=== PATIENT | female | born 1980 | race American Indian/Alaskan Native ===

== ENCOUNTER 2020-04-02 11:12 | Inpatient (IN) | payer BC, MEDICAID ==
[~2020-04-02] VITALS: Ht 154.9 cm; Wt 72.0 kg
[2020-04-02 11:55] LABS: BASOPHILS # (AUTO) 0.1 X10'3 (0-0.2); EOSINOPHILS % (AUTO) 0.2 % (0-6); HEMATOCRIT 34.5 % (35.0-45.0); HEMOGLOBIN 11.8 g/dl (12.0-16.0); LYMPHOCYTES # (AUTO) 1.2 X10'3 (1.1-4.8); LYMPHOCYTES % (AUTO) 12.2 % (21-51); MEAN CORPUSCULAR HEMOGLOBIN 41.4 PG (27.0-31.0); MEAN CORPUSCULAR HGB CONC 34.3 g/dL (33.0-36.5); MEAN CORPUSCULAR VOLUME 120.5 FL (78-98); MEAN PLATELET VOLUME 8.5 FL (7.4-10.4); MONOCYTES # (AUTO) 1.3 X10'3 (0-0.9); NEUTROPHILS # (AUTO) 7.1 X10'3 (1.8-7.7); NEUTROPHILS % (AUTO) 73.6 % (42-75); PLATELET COUNT 241 X10'3 (140-440); RED BLOOD COUNT 2.86 X10'6 (4.20-5.60); RED CELL DISTRIBUTION WIDTH 17.4 % (11.5-14.5); WHITE BLOOD COUNT 9.6 X10'3 (4.5-11.0)
[2020-04-02 12:09] LABS: ALANINE AMINOTRANSFERASE 96 U/L (12-78); ALBUMIN 2.1 G/DL (3.4-5.0); ALKALINE PHOSPHATASE 279 IU/L (46-116); AMYLASE 58 U/L (25-115); ANION GAP 12 (8-16); ASPARTATE AMINO TRANSFERASE 388 U/L (10-37); BILIRUBIN,TOTAL 11.7 MG/DL (0.1-1.0); BLOOD UREA NITROGEN 5 MG/DL (7-18); BUN/CREATININE RATIO 7.9 (6.6-38.0); CALCIUM 8.2 MG/DL (8.5-10.1); CHLORIDE 95 MMOL/L (99-107); CREATININE 0.63 MG/DL (0.40-0.90); GLUCOSE 130 MG/DL (70-104); LIPASE 314 U/L (73-393); SODIUM 129 MMOL/L (135-145); TOTAL CARBON DIOXIDE 22.5 MMOL/L (24-32); eGFR > 90 ML/MIN
[2020-04-02 12:11] LABS: ALBUMIN/GLOBULIN RATIO 0.4 (1.1-1.5); POTASSIUM 3.2 MMOL/L (3.5-5.1); TOTAL PROTEIN 7.3 G/DL (6.4-8.2)
[2020-04-02 12:12] LABS: PLATELET ESTIMATE NORMAL
[2020-04-02 12:14] LABS: ANISOCYTOSIS 1+
[2020-04-02 12:16] LABS: POLYCHROMASIA FEW; TARGET CELLS 1+
[2020-04-02 12:17] LABS: HCG SERUM QL NEGATIVE; HYPOCHROMASIA 1+
[2020-04-02] MEDS ORDERED: ondansetron/PF 4mg/2ml inj IV ONE ×2 (13:10→15:45)
[2020-04-02] MEDS ORDERED: normal saline 1000ML IV soln IVB ONE ×2 (13:10→15:35)
[2020-04-02 14:04] LABS: CLARITY,URINE Cloudy (Clear); COLOR,URINE BROWN (Yellow); UA COLLECTION TYPE CLN CATCH MIDSTREAM
--- NOTE | 2020-04-02 14:05 | NUR ---
To CT scan.
[2020-04-02 14:06] LABS: URINE HCG NEGATIVE (NEG)
[2020-04-02 14:15] LABS: BACTERIA,URINE 4+ /HPF (Neg); SQUAMOUS EPITHELIAL CELL,UR MANY /LPF (FEW)
[2020-04-02 14:16] LABS: WBC,URINE 30-50 /HPF (0-4)
[2020-04-02 14:18] LABS: WBC CLUMPS,URINE FEW /HPF (NEGATIVE)
[2020-04-02 14:19] LABS: TRANSITIONAL EPI CELLS,URINE FEW /HPF
--- NOTE | 2020-04-02 14:25 | NUR ---
Returned from CT scan via w/c. IVF bolus resumed at this time. Pt continues to have sinus tachy on the tele monitor. Pt's eyes and skin noted to be jaundiced.
[2020-04-02 14:34] LABS: PARTIAL THROMBOPLASTIN TIME 27 SECONDS (22-32)
[2020-04-02] MEDS ORDERED: morphine 10mg/ml inj. IV ONE (15:45)
[2020-04-02] MEDS ORDERED: piperacillin/tazo 3.375gm/50ml 50 ML IV ONE (15:45)
[2020-04-02] MEDS ORDERED: NO HOME MEDS (16:11)
[2020-04-02] MEDS ORDERED: magnesium 4gm in 100ml NS 100 ML IV PRN (16:25)
[2020-04-02] MEDS ORDERED: potassium CL 10mEq/100ml bag 100 ML IV PRN ×2 (16:25)
[2020-04-02] MEDS ORDERED: magnesium Cl slow-release 64mg tablet PO PRN (16:25)
[2020-04-02] MEDS ORDERED: potassium Cl 20 mEq SR tablet PO PRN (16:25)
[2020-04-02] MEDS ORDERED: ondansetron/PF 4mg/2ml inj IV PRN (16:25)
[2020-04-02] MEDS ORDERED: haloperidol 5mg tablet PO PRN (16:50)
[2020-04-02] MEDS ORDERED: LORazepam 2 mg/ml vial IV PRN (16:50)
[2020-04-02] MEDS ORDERED: haloperidol lactate 5mg/ml inj IM PRN (16:50)
[2020-04-02] MEDS ORDERED: dextrose 50%-water 50ml dispensing syringe IV PRN (16:50)
[2020-04-02] MEDS ORDERED: thiamine 100mg/ml 2ml inj. IV ONE (16:50)
--- NOTE | 2020-04-02 19:13 | NUR ---
Attempted to phone report, receiving RN is not ready to receive report.
--- NOTE | 2020-04-02 19:28 | NUR ---
PAGER ID: [phone] MESSAGE: FAHADBEENA [phone] RE: VELEBIT VBED 10 DOES SHE NEED FLUIDS? ONCOMING RN ASKING, NPO
--- NOTE | 2020-04-02 19:30 | NUR ---
I have received report from Jessy MÁRQUEZ and had the opportunity to ask questions and assume patient care. Pt showing no signs of distress
[2020-04-02 20:00] VITALS: BP 116/73
[2020-04-02] MEDS: K and/or MAG REPLACEMENT MC SCH (20:00)
[2020-04-02] MEDS: potassium Cl 20 mEq SR tablet PO PRN (21:22)
[2020-04-02] MEDS: LORazepam 1 MG tablet PO PRN (21:23)
[2020-04-02] MEDS: normal saline 1000ml 1,000 ML IV SCH (23:57)
[2020-04-03] VITALS: BP 121/76
[2020-04-03] MEDS: potassium Cl 20 mEq SR tablet PO PRN (02:34)
[2020-04-03 06:15] LABS: ALANINE AMINOTRANSFERASE 73 U/L (12-78); ALBUMIN 1.8 G/DL (3.4-5.0); ALKALINE PHOSPHATASE 229 IU/L (46-116); ANION GAP 10 (8-16); ASPARTATE AMINO TRANSFERASE 336 U/L (10-37); BILIRUBIN,TOTAL 14.1 MG/DL (0.1-1.0); BLOOD UREA NITROGEN 4 MG/DL (7-18); BUN/CREATININE RATIO 8.5 (6.6-38.0); CALCIUM 7.8 MG/DL (8.5-10.1); CHLORIDE 105 MMOL/L (99-107); CREATININE 0.47 MG/DL (0.40-0.90); GLUCOSE 64 MG/DL (70-104); MAGNESIUM 1.4 MG/DL (1.5-2.4); SODIUM 138 MMOL/L (135-145); TOTAL CARBON DIOXIDE 23.5 MMOL/L (24-32); eGFR > 90 ML/MIN
[2020-04-03 06:16] LABS: BASOPHILS # (AUTO) 0.1 X10'3 (0-0.2); BASOPHILS % (AUTO) 0.7 % (0-1); EOSINOPHILS # (AUTO) 0.1 X10'3 (0-0.9); EOSINOPHILS % (AUTO) 1.2 % (0-6); HEMATOCRIT 29.8 % (35.0-45.0); HEMOGLOBIN 10.3 g/dl (12.0-16.0); LYMPHOCYTES # (AUTO) 1.4 X10'3 (1.1-4.8); LYMPHOCYTES % (AUTO) 14.3 % (21-51); MEAN CORPUSCULAR HEMOGLOBIN 42.7 PG (27.0-31.0); MEAN CORPUSCULAR HGB CONC 34.5 g/dL (33.0-36.5); MEAN CORPUSCULAR VOLUME 123.7 FL (78-98); MEAN PLATELET VOLUME 9.3 FL (7.4-10.4); MONOCYTES # (AUTO) 1.2 X10'3 (0-0.9); MONOCYTES % (AUTO) 12.4 % (2-12); NEUTROPHILS # (AUTO) 6.9 X10'3 (1.8-7.7); NEUTROPHILS % (AUTO) 71.4 % (42-75); PLATELET COUNT 194 X10'3 (140-440); RED BLOOD COUNT 2.41 X10'6 (4.20-5.60); RED CELL DISTRIBUTION WIDTH 16.6 % (11.5-14.5); WHITE BLOOD COUNT 9.6 X10'3 (4.5-11.0)
[2020-04-03 06:17] LABS: ALBUMIN/GLOBULIN RATIO 0.4 (1.1-1.5); POTASSIUM 3.7 MMOL/L (3.5-5.1); TOTAL PROTEIN 6.4 G/DL (6.4-8.2)
--- NOTE | 2020-04-03 06:27 | NUR ---
Problems reprioritized. Patient report given, questions answered & plan of care reviewed with Adrienne MÁRQUEZ.
[2020-04-03 07:19] VITALS: BP 111/73
[2020-04-03] MEDS: K and/or MAG REPLACEMENT MC SCH ×2 (08:00→20:00)
[2020-04-03 08:21] LABS: ANISOCYTOSIS 1+; PLATELET ESTIMATE NORMAL; STOMATOCYTES 2+
[2020-04-03 08:22] LABS: HYPOCHROMASIA 1+; TARGET CELLS FEW
[2020-04-03] MEDS: normal saline 1000ml 1,000 ML IV SCH ×2 (09:50→12:59)
--- NOTE | 2020-04-03 11:55 | NUR ---
COVERING LUNCH RELIEF FOR Debbie ROBB RN. PT DENIES ANY UNMET NEEDS AT THIS TIME Addendum: 04/03/20 at 1156 by Judy Rosario RN Flores [facility] YULISA
[2020-04-03 11:56] VITALS: BP 112/67
[2020-04-03] MEDS: magnesium 2GM in 50ml NS 50 ML IV PRN ×2 (12:58→15:32)
[2020-04-03 18:00] VITALS: BP 116/78
--- NOTE | 2020-04-03 18:30 | NUR ---
Patient in room [facility]. I have received report from YULISA Deleon and had the opportunity to ask questions and assume patient care. discussed plan of care. pt verbalizes understanding. No other complaints. Addendum: 04/03/20 at 1903 by Amebr Villar RN Amended: Links added.
--- NOTE | 2020-04-03 18:44 | NUR ---
Problems reprioritized. Patient report given, questions answered & plan of care reviewed with YULISA Nye.
[2020-04-03] MEDS: LORazepam 1 MG tablet PO PRN (20:46)
--- NOTE | 2020-04-03 20:58 | NUR ---
ATIVAN GIVEN FOR ANXIETY SL SHAKING. ALERT AND ORIENTED. Addendum: 04/03/20 at 2058 by Amber Villar RN Amended: Links added.
[2020-04-03 23:30] VITALS: BP 120/81
[2020-04-04] MEDS: normal saline 1000ml 1,000 ML IV SCH ×3 (03:30→12:24)
[2020-04-04 06:01] LABS: BASOPHILS # (AUTO) 0.2 X10'3 (0-0.2); BASOPHILS % (AUTO) 1.7 % (0-1); EOSINOPHILS # (AUTO) 0.1 X10'3 (0-0.9); EOSINOPHILS % (AUTO) 1.4 % (0-6); HEMATOCRIT 31.4 % (35.0-45.0); HEMOGLOBIN 10.6 g/dl (12.0-16.0); LYMPHOCYTES # (AUTO) 1.6 X10'3 (1.1-4.8); MEAN CORPUSCULAR HEMOGLOBIN 41.9 PG (27.0-31.0); MEAN CORPUSCULAR HGB CONC 33.9 g/dL (33.0-36.5); MEAN CORPUSCULAR VOLUME 123.5 FL (78-98); MEAN PLATELET VOLUME 8.9 FL (7.4-10.4); MONOCYTES # (AUTO) 1.1 X10'3 (0-0.9); MONOCYTES % (AUTO) 11.6 % (2-12); NEUTROPHILS # (AUTO) 6.5 X10'3 (1.8-7.7); NEUTROPHILS % (AUTO) 68.3 % (42-75); PLATELET COUNT 215 X10'3 (140-440); RED BLOOD COUNT 2.54 X10'6 (4.20-5.60); WHITE BLOOD COUNT 9.5 X10'3 (4.5-11.0)
[2020-04-04 06:19] LABS: ALANINE AMINOTRANSFERASE 75 U/L (12-78); ALBUMIN 1.8 G/DL (3.4-5.0); ALKALINE PHOSPHATASE 222 IU/L (46-116); ANION GAP 10 (8-16); BLOOD UREA NITROGEN 3 MG/DL (7-18); CALCIUM 7.7 MG/DL (8.5-10.1); CHLORIDE 104 MMOL/L (99-107); MAGNESIUM 2.2 MG/DL (1.5-2.4); SODIUM 136 MMOL/L (135-145); TOTAL CARBON DIOXIDE 22.4 MMOL/L (24-32)
[2020-04-04 06:26] LABS: ALBUMIN/GLOBULIN RATIO 0.4 (1.1-1.5); ASPARTATE AMINO TRANSFERASE 325 U/L (10-37); BUN/CREATININE RATIO 6.7 (6.6-38.0); CREATININE 0.45 MG/DL (0.40-0.90); GLUCOSE 53 MG/DL (70-104); POTASSIUM 3.9 MMOL/L (3.5-5.1); TOTAL PROTEIN 6.6 G/DL (6.4-8.2); eGFR > 90 ML/MIN
--- NOTE | 2020-04-04 06:35 | NUR ---
Problems reprioritized. Patient report given, questions answered & plan of care reviewed with YULISA Varela. Addendum: 04/04/20 at 0654 by Amber Villar RN Amended: Links added.
--- NOTE | 2020-04-04 06:48 | NUR ---
Patient in room [facility]. I have received report from Parris MÁRQUEZ and had the opportunity to ask questions and assume patient care.
[2020-04-04 07:00] VITALS: BP 117/82
[2020-04-04 07:15] LABS: ANISOCYTOSIS 1+; PLATELET ESTIMATE NORMAL; POLYCHROMASIA 2+; TARGET CELLS FEW
[2020-04-04] MEDS: K and/or MAG REPLACEMENT MC SCH ×2 (08:00→19:00)
--- NOTE | 2020-04-04 08:05 | NUR ---
Blood sugar this am was 58mg/dl, patient currently on NPO. D50 slowp IV push given as indicated for hypogylcemia
--- NOTE | 2020-04-04 10:29 | NUR ---
Patient very anxious at this time because she is going to MRI dept. Ativan 2mg IV given
[2020-04-04 11:00] VITALS: BP 100/63
--- NOTE | 2020-04-04 12:26 | NUR ---
Dr. Hansen notified about the hypoglycemia this am and that I gave patient D50. Dr. Hansen said patient supposed to be seen by Dr. Reynolds and that we need to keep patient NPO
--- NOTE | 2020-04-04 14:19 | NUR ---
Paged Dr. Hansen PAGER ID: [phone] MESSAGE: Blayne Varela RN ext [phone]. RE: Graciela Staples. Blood sugar dropped again 73 mg/dl at this time. She is getting NS@100ml/hr. Can we change her IVF to a D5?
[2020-04-04] MEDS: dextrose 5%-normal saline 1,000 ML IV SCH (14:43)
[2020-04-04 18:15] VITALS: BP 121/87
--- NOTE | 2020-04-04 18:49 | NUR ---
Problems reprioritized. Patient report given, questions answered & plan of care reviewed with Leona MÁRQUEZ.
--- NOTE | 2020-04-04 18:57 | NUR ---
Patient in room [facility]. I have received report from YULISA Varela and had the opportunity to ask questions and assume patient care.
[2020-04-05 00:15] VITALS: BP 131/83
[2020-04-05] MEDS: dextrose 5%-normal saline 1,000 ML IV SCH ×2 (00:30→10:05)
[2020-04-05 05:29] LABS: ALANINE AMINOTRANSFERASE 63 U/L (12-78); ALBUMIN 1.6 G/DL (3.4-5.0); ALKALINE PHOSPHATASE 189 IU/L (46-116); ANION GAP 8 (8-16); ASPARTATE AMINO TRANSFERASE 233 U/L (10-37); BILIRUBIN,TOTAL 10.9 MG/DL (0.1-1.0); BLOOD UREA NITROGEN 3 MG/DL (7-18); BUN/CREATININE RATIO 4.5 (6.6-38.0); CALCIUM 7.6 MG/DL (8.5-10.1); CHLORIDE 104 MMOL/L (99-107); CREATININE 0.66 MG/DL (0.40-0.90); GLUCOSE 103 MG/DL (70-104); MAGNESIUM 1.9 MG/DL (1.5-2.4); SODIUM 134 MMOL/L (135-145); TOTAL CARBON DIOXIDE 22.2 MMOL/L (24-32); eGFR > 90 ML/MIN
[2020-04-05 05:33] LABS: ALBUMIN/GLOBULIN RATIO 0.4 (1.1-1.5); POTASSIUM 3.2 MMOL/L (3.5-5.1); TOTAL PROTEIN 5.9 G/DL (6.4-8.2)
[2020-04-05 06:27] LABS: BASOPHILS # (AUTO) 0.1 X10'3 (0-0.2); BASOPHILS % (AUTO) 1.5 % (0-1); EOSINOPHILS # (AUTO) 0.1 X10'3 (0-0.9); EOSINOPHILS % (AUTO) 1.5 % (0-6); HEMATOCRIT 27.9 % (35.0-45.0); HEMOGLOBIN 9.8 g/dl (12.0-16.0); LYMPHOCYTES # (AUTO) 1.7 X10'3 (1.1-4.8); LYMPHOCYTES % (AUTO) 18.6 % (21-51); MEAN CORPUSCULAR HEMOGLOBIN 43.3 PG (27.0-31.0); MEAN CORPUSCULAR HGB CONC 35.1 g/dL (33.0-36.5); MEAN CORPUSCULAR VOLUME 123.6 FL (78-98); MEAN PLATELET VOLUME 8.6 FL (7.4-10.4); MONOCYTES # (AUTO) 1.4 X10'3 (0-0.9); NEUTROPHILS # (AUTO) 5.8 X10'3 (1.8-7.7); NEUTROPHILS % (AUTO) 63.4 % (42-75); PLATELET COUNT 215 X10'3 (140-440); RED BLOOD COUNT 2.26 X10'6 (4.20-5.60); RED CELL DISTRIBUTION WIDTH 16.1 % (11.5-14.5); WHITE BLOOD COUNT 9.2 X10'3 (4.5-11.0)
[2020-04-05 07:00] VITALS: BP 115/84
[2020-04-05] MEDS: K and/or MAG REPLACEMENT MC SCH (07:01)
--- NOTE | 2020-04-05 11:13 | NUR ---
Patient in room [facility]. I have received report from Beau Clarke and had the opportunity to ask questions and assume patient care.
[2020-04-05 12:00] VITALS: BP 131/84
--- NOTE | 2020-04-05 12:00 | NUR ---
I reviewed and agreed with chanell MÁRQUEZ's Physical Assessment. Pt is A & O x4, in no apparent distress. Pt wants to go home today, feeling better.
[2020-04-05] MEDS ORDERED: POTA20TA19 PO (13:11)
--- NOTE | 2020-04-05 15:01 | NUR ---
Pt DC to home with . Pt is A & Ox4 and in no apparent distress. Pt verbalizes understanding of all DC orders and the importance of following up with PCP in 1 week. Pt send home with Clark-maximino for the next 10 day. Pt is to get labs re-drawn ijn 1 week. Pt able to teach back the importance of following up. Pt also educated on ETOH rehabilitation, AA meeting and community assistance to help her get better. Pt says she knows and just wants to go home. Pt packed all of her belongings and her is meeting her in the front to take her home.
[2020-04-05] MEDS ORDERED: piperacillin/tazo 3.375gm/50ml 50 ML IV SCH (16:00)
[2020-04-05] MEDS ORDERED: lactobacillus rhamnosus 10,000 MMU CELLS/CAPSULE PO SCH (20:00)
== END 2020-04-05 14:58 | disposition home or self-care (01) | DRG 280 ==
LOC: ER 11:13 → ED HOLD 16:22 → SUR 3N 19:31
PROVIDERS: ADMIT Internal Medicine; ATTEND Internal Medicine
DX: K70.31 Alcoholic cirrhosis of liver with ascites (principal); D53.9 Nutritional anemia, unspecified; E53.8 Deficiency of other specified B group vitamins; E87.1 Hypo-osmolality and hyponatremia; R63.0 Anorexia; E87.6 Hypokalemia; F10.10 Alcohol abuse, uncomplicated; F17.210 Nicotine dependence, cigarettes, uncomplicated; K72.90 Hepatic failure, unspecified without coma; Z68.30 Body mass index [BMI] 30.0-30.9, adult
CPT/HCPCS: 36415; 74176; 74181; 76700; 80053; 81001; 81025; 82140; 82150; 82948; 83605; 83690; 83735; 84145; 84703; 85008; 85025; 85610; 85730; 87040; 87081; 99285; G0378; J2060; J2270; J2405; J2543; J3411; J3475; J7030; J7042

== ENCOUNTER 2022-02-25 13:36 | Inpatient (IN) | payer MEDICAID ==
[~2022-02-25] VITALS: Ht 154.9 cm; Wt 75.9 kg
[~2022-02-25 13:36] MED LIST: NO HOME MEDS; POTA-207 PO
[2022-02-25 14:51] LABS: BASOPHILS # (AUTO) 0.3 X10'3 (0-0.2); BASOPHILS % (AUTO) 1.6 % (0-1); EOSINOPHILS # (AUTO) 0.2 X10'3 (0-0.9); HEMOGLOBIN 11.3 g/dl (12.0-16.0); MEAN CORPUSCULAR HGB CONC 34.9 g/dL (33.0-36.5); MEAN PLATELET VOLUME 7.5 FL (7.4-10.4)
[2022-02-25 14:53] LABS: LYMPHOCYTES # (AUTO) 2.5 X10'3 (1.1-4.8); MONOCYTES # (AUTO) 1.7 X10'3 (0-0.9); NEUTROPHILS # (AUTO) 12.7 X10'3 (1.8-7.7); RED BLOOD COUNT 2.71 X10'6 (4.20-5.60); WHITE BLOOD COUNT 17.3 X10'3 (4.5-11.0)
[2022-02-25 14:54] LABS: HEMATOCRIT 32.4 % (35.0-45.0); MEAN CORPUSCULAR HEMOGLOBIN 41.7 PG (27.0-31.0); MEAN CORPUSCULAR VOLUME 119.7 FL (78-98); PLATELET COUNT 317 X10'3 (140-440); RED CELL DISTRIBUTION WIDTH 16.4 % (11.5-14.5)
[2022-02-25 15:02] LABS: ALANINE AMINOTRANSFERASE 46 U/L (12-78); ALBUMIN 2.1 G/DL (3.4-5.0); ALKALINE PHOSPHATASE 201 IU/L (46-116); ANION GAP 11 (8-16); ASPARTATE AMINO TRANSFERASE 351 U/L (10-37); BILIRUBIN,TOTAL 7.3 MG/DL (0.1-1.0); BLOOD UREA NITROGEN 2 MG/DL (7-18); BUN/CREATININE RATIO 3.7 (6.6-38.0); CALCIUM 8.1 MG/DL (8.5-10.1); CHLORIDE 99 MMOL/L (99-107); CREATININE 0.54 MG/DL (0.40-0.90); GLUCOSE 112 MG/DL (70-104); LIPASE 146 U/L (73-393); SODIUM 135 MMOL/L (135-145); TOTAL CARBON DIOXIDE 25.2 MMOL/L (24-32); eGFR > 90 ML/MIN
[2022-02-25 15:13] LABS: ALBUMIN/GLOBULIN RATIO 0.3 (1.1-1.5); TOTAL PROTEIN 8.4 G/DL (6.4-8.2)
[2022-02-25 15:20] LABS: ANISOCYTOSIS 1+; PLATELET ESTIMATE NORMAL
[2022-02-25 15:21] LABS: TARGET CELLS 1+
[2022-02-25] MEDS ORDERED: POTASSIUM BICARB 20meq eff tab 20 MEQ TABLET.EFF PO ONE (15:55)
[2022-02-25] MEDS ORDERED: LIDOcaine 1% w/EPI 1:100,000 30ml vial (MDV) SQ ONE (20:15)
[2022-02-25] MEDS ORDERED: piperacillin/tazo 3.375gm/50ml 50 ML IV ONE (21:00)
[2022-02-25 21:36] LABS: AMYLASE,BODY FLUID 10 U/L; GLUCOSE,BODY FLUID 111 MG/DL
[2022-02-25 21:39] LABS: ALBUMIN,BODY FLUID < 0.6 G/DL; CHOLESTEROL,BODY FLUID 10 MG/DL; TOTAL PROTEIN,BODY FLUID < 2.0 G/DL
[2022-02-25 22:29] LABS: BFAPPEAR HAZY; BFCOLOR YELLOW; BFVOLUME 40 ML
[2022-02-25 22:30] LABS: BF MESOTHELIAL CELLS FEW; BF RBC COUNT 41 /CU MM; BF WBC COUNT 180 /CU MM (0-1000); LYMPHOCYTES,BODY FLUID 43 %; MONOCYTES,BODY FLUID 26 %; NEUTROPHILS,BODY FLUID 31 %
[2022-02-25] MEDS ORDERED: ringers solution, lacted 1,000 ML IV ONE (23:00)
[2022-02-25 23:13] LABS: URINE HCG NEGATIVE (NEG)
[2022-02-25 23:14] LABS: CLARITY,URINE CLOUDY (Clear); GLUCOSE, URINE 100 mg/dl (Neg); KETONES,URINE TRACE mg/dl (Neg); LEUKOCYTE ESTERASE ,URINE SMALL (Neg); OCCULT BLOOD,URINE NEGATIVE (Neg); PH,URINE 6.5 (4.8-8.0); PROTEIN,URINE 100 mg/dl (Neg); UROBILINOGEN,URINE >=8.0 E.U/dL (0.2-1.0)
[2022-02-25 23:41] LABS: UA COLLECTION TYPE CLN CATCH MIDSTREAM
[2022-02-25 23:42] LABS: COLOR,URINE AMBER (Yellow)
[2022-02-26] LABS: NITRITES, URINE NEGATIVE (Neg)
[2022-02-26] MEDS ORDERED: HYDROcodone/acetaminophen 10/325mg tab PO PRN
[2022-02-26] MEDS ORDERED: mag hydrox/Alum hydrox/simeth 30ml oral suspension PO PRN ×2
[2022-02-26] MEDS ORDERED: ondansetron/PF 4mg/2ml inj IV PRN
[2022-02-26] MEDS ORDERED: metoclopramide 5 mg/ml inj IV PRN
[2022-02-26] MEDS ORDERED: haloperidol 5mg tablet PO PRN
[2022-02-26] MEDS ORDERED: dextrose 50%-water 50ml dispensing syringe IV PRN
[2022-02-26] MEDS ORDERED: magnesium hydroxide 30ml (MOM) UD suspension PO PRN
[2022-02-26] MEDS ORDERED: loperamide 2mg capsule PO PRN ×2
[2022-02-26] MEDS ORDERED: HYDROcodone/acetaminophen 5mg/325mg tablet PO PRN
[2022-02-26] MEDS ORDERED: haloperidol lactate 5mg/ml inj IM PRN
[2022-02-26] MEDS ORDERED: acetaminophen 325mg tablet PO PRN ×2
[2022-02-26] MEDS ORDERED: morphine 2 MG/ML inj. syringe IV PRN ×2
[2022-02-26] MEDS ORDERED: dicyclomine 10 MG capsule PO PRN
[2022-02-26] MEDS ORDERED: cyclobenzaprine 10mg tablet PO PRN
[2022-02-26 00:01] LABS: BACTERIA,URINE 2+ /HPF (Neg); MUCUS STRANDS FEW /LPF (Neg); RBC,URINE 0-2 /HPF (0-2); SQUAMOUS EPITHELIAL CELL,UR FEW /LPF (FEW); TRANSITIONAL EPI CELLS,URINE FEW /HPF
[2022-02-26 00:02] LABS: FINE GRANULAR CAST 0-3 /LPF (NEGATIVE)
[2022-02-26] MEDS: normal saline 1000ml 1,000 ML IV SCH ×3 (02:35→20:00)
[2022-02-26] MEDS: CefTRIAXone 2gm/D5W 50ml BAG 50 ML IV SCH ×2 (03:40→07:07)
[2022-02-26 05:42] LABS: BASOPHILS # (AUTO) 0.3 X10'3 (0-0.2); BASOPHILS % (AUTO) 1.6 % (0-1); EOSINOPHILS # (AUTO) 0.1 X10'3 (0-0.9); EOSINOPHILS % (AUTO) 0.6 % (0-6); HEMATOCRIT 29.5 % (35.0-45.0); HEMOGLOBIN 10.3 g/dl (12.0-16.0); LYMPHOCYTES # (AUTO) 2.4 X10'3 (1.1-4.8); MEAN CORPUSCULAR HEMOGLOBIN 41.9 PG (27.0-31.0); MEAN CORPUSCULAR HGB CONC 34.9 g/dL (33.0-36.5); MEAN PLATELET VOLUME 7.9 FL (7.4-10.4); MONOCYTES # (AUTO) 1.6 X10'3 (0-0.9); MONOCYTES % (AUTO) 9.1 % (2-12); NEUTROPHILS % (AUTO) 74.7 % (42-75); PLATELET COUNT 249 X10'3 (140-440); RED BLOOD COUNT 2.46 X10'6 (4.20-5.60); RED CELL DISTRIBUTION WIDTH 16.4 % (11.5-14.5); WHITE BLOOD COUNT 17.4 X10'3 (4.5-11.0)
[2022-02-26 05:46] LABS: ALANINE AMINOTRANSFERASE 40 U/L (12-78); ALBUMIN 1.8 G/DL (3.4-5.0); ALKALINE PHOSPHATASE 177 IU/L (46-116); ANION GAP 12 (8-16); ASPARTATE AMINO TRANSFERASE 308 U/L (10-37); BILIRUBIN,TOTAL 7.7 MG/DL (0.1-1.0); BLOOD UREA NITROGEN 2 MG/DL (7-18); BUN/CREATININE RATIO 3.8 (6.6-38.0); CALCIUM 7.6 MG/DL (8.5-10.1); CHLORIDE 99 MMOL/L (99-107); CREATININE 0.52 MG/DL (0.40-0.90); GLUCOSE 91 MG/DL (70-104); SODIUM 135 MMOL/L (135-145); TOTAL CARBON DIOXIDE 23.9 MMOL/L (24-32); eGFR > 90 ML/MIN
[2022-02-26 06:07] LABS: ALBUMIN/GLOBULIN RATIO 0.3 (1.1-1.5); TOTAL PROTEIN 7.5 G/DL (6.4-8.2)
[2022-02-26] MEDS: multivitamins, therapeutics tablet PO SCH (07:07)
[2022-02-26] MEDS: furosemide 20MG tablet PO SCH (07:08)
[2022-02-26] MEDS: docusate sod 100mg capsule PO SCH ×2 (07:08→20:00)
[2022-02-26] MEDS: thiamine 100mg/ml 2ml inj. IV SCH ×3 (07:08→20:08)
[2022-02-26] MEDS ORDERED: potassium CL 10mEq/100ml bag 100 ML IV PRN (08:20)
[2022-02-26] MEDS ORDERED: potassium Cl 20 mEq SR tablet PO PRN ×2 (08:20)
[2022-02-26] MEDS ORDERED: magnesium 4gm in 100ml NS 100 ML IV PRN (08:20)
[2022-02-26] MEDS: spironolactone 50 MG tablet PO SCH (08:21)
[2022-02-26] MEDS: folic acid 1mg/0.2ml inj IV SCH (08:21)
[2022-02-26 09:46] LABS: CLARITY,URINE CLOUDY (Clear); COLOR,URINE YELLOW (Yellow); GLUCOSE, URINE NEGATIVE (Neg); KETONES,URINE NEGATIVE (Neg); LEUKOCYTE ESTERASE ,URINE LARGE (Neg); NITRITES, URINE NEGATIVE (Neg); OCCULT BLOOD,URINE SMALL (Neg); PH,URINE 6.5 (4.8-8.0); PROTEIN,URINE NEGATIVE (Neg); UA COLLECTION TYPE CLN CATCH MIDSTREAM; UROBILINOGEN,URINE 0.2 E.U/dL (0.2-1.0)
[2022-02-26 09:47] LABS: BACTERIA,URINE 3+ /HPF (Neg); MUCUS STRANDS FEW /LPF (Neg); SQUAMOUS EPITHELIAL CELL,UR MODERATE /LPF (FEW); WBC CLUMPS,URINE MODERATE /HPF (NEGATIVE); WBC,URINE TNTC /HPF (0-4)
--- NOTE | 2022-02-26 12:15 | NUR ---
Rec patient from ER in stable condition to bed 1334A short stay for holding to transfer to floor. VSS and afebrile. Heart rate noted to be 125 and regular. Placed on cardiac monitoring with sinus tachycardia. States she hasnt eaten/ drank except etoh since yesterday secondary to nausea and abd pain. Alert and oriented. MD orders noted.
[2022-02-26 12:30] VITALS: BP 135/70
--- NOTE | 2022-02-26 15:10 | NUR ---
Received patient to room 3013A. Patient is alert and oriented in no apparent acute distress. X1 belongings bag and purse at bedside. Oriented patient to room and call light. Call light placed within patient's reach bed low and locked. Patient on seizure precautions. Patient given oral swab and educated she is NPO. Will continue to monitor.
[2022-02-26 15:13] VITALS: BP 118/74
[2022-02-26 18:00] VITALS: BP 131/57
--- NOTE | 2022-02-26 18:20 | NUR ---
Patient in room PCU 3013. I have received report from YULISA Francois and had the opportunity to ask questions and assume patient care.
--- NOTE | 2022-02-26 18:37 | NUR ---
Problems reprioritized. Patient report given, questions answered & plan of care reviewed with YULISA Roldan.
[2022-02-26] MEDS: K and/or MAG REPLACEMENT MC SCH (20:00)
[2022-02-26] MEDS: LORazepam 2 mg/ml vial IV PRN (20:23)
[2022-02-26 22:00] VITALS: BP 98/56
[2022-02-27 02:00] VITALS: BP 89/52
[2022-02-27 02:30] VITALS: BP 99/51
[2022-02-27] MEDS: normal saline 1000ml 1,000 ML IV SCH ×2 (03:12→20:38)
[2022-02-27 06:00] VITALS: BP 124/74
--- NOTE | 2022-02-27 06:10 | NUR ---
Problems reprioritized. Patient report given, questions answered & plan of care reviewed with YULISA Garcia.
--- NOTE | 2022-02-27 07:00 | NUR ---
pt's iv infiltrated. tried to start another one but unable to. Asked quality officer to try and she said she would. Will monitor
[2022-02-27 07:29] LABS: BASOPHILS # (AUTO) 0.1 X10'3 (0-0.2); BASOPHILS % (AUTO) 0.9 % (0-1); EOSINOPHILS # (AUTO) 0.2 X10'3 (0-0.9); EOSINOPHILS % (AUTO) 1.6 % (0-6); HEMOGLOBIN 9.6 g/dl (12.0-16.0); LYMPHOCYTES # (AUTO) 2.1 X10'3 (1.1-4.8); LYMPHOCYTES % (AUTO) 14.3 % (21-51); MEAN CORPUSCULAR HEMOGLOBIN 42.4 PG (27.0-31.0); MEAN CORPUSCULAR HGB CONC 35.6 g/dL (33.0-36.5); MEAN CORPUSCULAR VOLUME 119.3 FL (78-98); MEAN PLATELET VOLUME 7.5 FL (7.4-10.4); MONOCYTES # (AUTO) 1.5 X10'3 (0-0.9); MONOCYTES % (AUTO) 9.9 % (2-12); NEUTROPHILS % (AUTO) 73.3 % (42-75); PLATELET COUNT 226 X10'3 (140-440); RED BLOOD COUNT 2.26 X10'6 (4.20-5.60)
[2022-02-27] MEDS: CefTRIAXone 2gm/D5W 50ml BAG 50 ML IV SCH (08:00)
[2022-02-27] MEDS: docusate sod 100mg capsule PO SCH ×2 (08:00→20:00)
[2022-02-27] MEDS: K and/or MAG REPLACEMENT MC SCH ×2 (08:00→20:00)
[2022-02-27 08:01] LABS: ALANINE AMINOTRANSFERASE 38 U/L (12-78); ALBUMIN 1.6 G/DL (3.4-5.0); ALKALINE PHOSPHATASE 148 IU/L (46-116); ANION GAP 10 (8-16); ASPARTATE AMINO TRANSFERASE 244 U/L (10-37); BILIRUBIN,TOTAL 10.9 MG/DL (0.1-1.0); BLOOD UREA NITROGEN 5 MG/DL (7-18); BUN/CREATININE RATIO 9.6 (6.6-38.0); CALCIUM 7.5 MG/DL (8.5-10.1); CHLORIDE 101 MMOL/L (99-107); CREATININE 0.52 MG/DL (0.40-0.90); GLUCOSE 62 MG/DL (70-104); MAGNESIUM 1.4 MG/DL (1.5-2.4); SODIUM 136 MMOL/L (135-145); TOTAL CARBON DIOXIDE 25.5 MMOL/L (24-32); eGFR > 90 ML/MIN
[2022-02-27 08:03] LABS: ALBUMIN/GLOBULIN RATIO 0.3 (1.1-1.5); PHOSPHORUS 3.1 MG/DL (2.3-4.5); POTASSIUM 3.7 MMOL/L (3.5-5.1); TOTAL PROTEIN 6.8 G/DL (6.4-8.2)
[2022-02-27] MEDS: spironolactone 50 MG tablet PO SCH (08:20)
[2022-02-27] MEDS: multivitamins, therapeutics tablet PO SCH (08:20)
[2022-02-27] MEDS: furosemide 20MG tablet PO SCH (08:20)
--- NOTE | 2022-02-27 08:56 | NUR ---
Initial: Pt admitted w/ sepsis and increasing abd distention, s/p paracentesis w/ 1.6L out this admit per EMR. Currently NPO. Recommend advancing to Regular diet. LBM 02/26 receiving routine colace. Limited nutrition interventions at this time, will continue to monitor. Recs: 1. Advance to Regular diet 2. Monitor need for additional protein 3. Bowel care per rx 4. Weekly wts Addendum: 02/27/22 at [address] Amended: Links added.
[2022-02-27 09:50] LABS: ANISOCYTOSIS 1+; PLATELET ESTIMATE NORMAL; ROULEAUX 2+; TOTAL CELLS COUNTED 100
[2022-02-27 09:51] LABS: POLYCHROMASIA 1+; TARGET CELLS 1+
[2022-02-27] MEDS: thiamine 100mg/ml 2ml inj. IV SCH ×3 (12:13→20:26)
[2022-02-27] MEDS: folic acid 1mg/0.2ml inj IV SCH (12:14)
[2022-02-27] MEDS: magnesium Cl slow-release 64mg tablet PO PRN (12:14)
[2022-02-27 15:00] VITALS: BP 116/66
[2022-02-27 18:00] VITALS: BP 126/80
--- NOTE | 2022-02-27 18:20 | NUR ---
Patient in room PCU 3013. I have received report from KRISTY Garcia and had the opportunity to ask questions and assume patient care.
[2022-02-27] MEDS: LORazepam 2 mg/ml vial IV PRN (20:37)
[2022-02-27 22:00] VITALS: BP 95/59
[2022-02-28] MEDS ORDERED: LORazepam 2 mg/ml vial IV PRN
[2022-02-28] MEDS ORDERED: LORazepam 1 MG tablet PO PRN
[2022-02-28] MEDS: prednisone 10mg tablet PO SCH ×2 (00:16→09:19)
[2022-02-28 02:00] VITALS: BP 105/63
[2022-02-28] MEDS: normal saline 1000ml 1,000 ML IV SCH (04:26)
--- NOTE | 2022-02-28 06:47 | NUR ---
Problems reprioritized. Patient report given, questions answered & plan of care reviewed with YULISA Ray.
--- NOTE | 2022-02-28 06:49 | NUR ---
Patient in room PCU 3013. I have received report from Yuli MÁRQUEZ and had the opportunity to ask questions and assume patient care.
[2022-02-28 06:56] VITALS: BP 104/64
[2022-02-28] MEDS: docusate sod 100mg capsule PO SCH (08:00)
[2022-02-28] MEDS ORDERED: Ursodiol 300mg capsule PO SCH (08:00)
[2022-02-28 08:45] LABS: BASOPHILS # (AUTO) 0.1 X10'3 (0-0.2); EOSINOPHILS % (AUTO) 0.1 % (0-6); HEMATOCRIT 27.8 % (35.0-45.0); HEMOGLOBIN 9.6 g/dl (12.0-16.0); LYMPHOCYTES # (AUTO) 1.3 X10'3 (1.1-4.8); LYMPHOCYTES % (AUTO) 9.2 % (21-51); MEAN CORPUSCULAR HEMOGLOBIN 41.8 PG (27.0-31.0); MEAN CORPUSCULAR HGB CONC 34.4 g/dL (33.0-36.5); MEAN CORPUSCULAR VOLUME 121.4 FL (78-98); MEAN PLATELET VOLUME 8.3 FL (7.4-10.4); MONOCYTES # (AUTO) 0.8 X10'3 (0-0.9); MONOCYTES % (AUTO) 5.6 % (2-12); NEUTROPHILS # (AUTO) 12.2 X10'3 (1.8-7.7); NEUTROPHILS % (AUTO) 84.1 % (42-75); PLATELET COUNT 216 X10'3 (140-440); RED BLOOD COUNT 2.29 X10'6 (4.20-5.60); RED CELL DISTRIBUTION WIDTH 15.8 % (11.5-14.5); WHITE BLOOD COUNT 14.4 X10'3 (4.5-11.0)
[2022-02-28 09:04] LABS: ALANINE AMINOTRANSFERASE 37 U/L (12-78); ALBUMIN 1.7 G/DL (3.4-5.0); ALKALINE PHOSPHATASE 140 IU/L (46-116); ANION GAP 10 (8-16); ASPARTATE AMINO TRANSFERASE 230 U/L (10-37); BILIRUBIN,TOTAL 7.9 MG/DL (0.1-1.0); BLOOD UREA NITROGEN 6 MG/DL (7-18); CALCIUM 7.7 MG/DL (8.5-10.1); CHLORIDE 100 MMOL/L (99-107); GLUCOSE 112 MG/DL (70-104); MAGNESIUM 1.3 MG/DL (1.5-2.4); SODIUM 134 MMOL/L (135-145); TOTAL CARBON DIOXIDE 24.1 MMOL/L (24-32); eGFR > 90 ML/MIN
[2022-02-28 09:05] LABS: ALBUMIN/GLOBULIN RATIO 0.3 (1.1-1.5); PHOSPHORUS 2.6 MG/DL (2.3-4.5); POTASSIUM 3.9 MMOL/L (3.5-5.1); TOTAL PROTEIN 7.2 G/DL (6.4-8.2)
[2022-02-28] MEDS: CefTRIAXone 2gm/D5W 50ml BAG 50 ML IV SCH (09:18)
[2022-02-28] MEDS: folic acid 1mg/0.2ml inj IV SCH (09:19)
[2022-02-28] MEDS: thiamine 100mg/ml 2ml inj. IV SCH ×2 (09:20→15:01)
[2022-02-28] MEDS: spironolactone 50 MG tablet PO SCH (09:20)
[2022-02-28] MEDS: multivitamins, therapeutics tablet PO SCH (09:20)
[2022-02-28] MEDS: furosemide 20MG tablet PO SCH (09:21)
[2022-02-28 09:36] LABS: HIV ANTIBODY 1&2 RAPID NON-REACTIVE (Neg)
[2022-02-28 10:00] VITALS: BP 112/70
[2022-02-28] MEDS ORDERED: THIA50TA10 PO (14:40)
[2022-02-28] MEDS ORDERED: CEFD300C3 PO (14:40)
[2022-02-28] MEDS ORDERED: URSO300C2 PO (14:40)
[2022-02-28] MEDS ORDERED: LORA-269 PO (14:40)
[2022-02-28] MEDS ORDERED: PRED10TA PO (14:40)
[2022-02-28] MEDS ORDERED: FURO20TA4 PO (14:40)
[2022-02-28] MEDS ORDERED: SPIR50TA PO (14:40)
[2022-02-28] MEDS ORDERED: MULT-25 PO (14:40)
[2022-02-28] MEDS ORDERED: LACT1CAP26 PO (14:40)
[2022-02-28] MEDS ORDERED: FOLI0.4T6 PO (14:40)
[2022-02-28] MEDS: magnesium Cl slow-release 64mg tablet PO PRN (15:01)
--- NOTE | 2022-02-28 16:35 | NUR ---
patient seen by Dr Bowers is for discharge. All Dc instructions given to patient. PIV removed intact. patient appears stable DC home via private car by self in stable condition
[2022-03-02] MEDS ORDERED: LORazepam 1 MG tablet PO PRN
[2022-03-02] MEDS ORDERED: LORazepam 2 mg/ml vial IV PRN
[2022-03-02] MEDS ORDERED: thiamine 100mg tablet PO SCH (08:00)
[2022-03-02] MEDS ORDERED: folic acid 1mg tablet PO SCH (08:00)
[2022-03-02 13:14] LABS: HBSAG SCREEN Negative (Negative); HEP A AB, IGM Negative (Negative); HEPATITIS C ANTIBODY <0.1 s/co ratio (0.0-0.9)
== END 2022-02-28 16:30 | disposition home or self-care (01) | DRG 720 ==
LOC: ER 13:37 → ED HOLD 02-26 00:02 → PCU 3S 02-26 15:58
PROVIDERS: ADMIT Internal Medicine; ATTEND Family Medicine
PROC: 0W9G3ZZ Drainage of Peritoneal Cavity, Percutaneous Approach (ICD-10-PCS; principal; 2022-02-25)
DX: A41.9 Sepsis, unspecified organism (principal); K72.00 Acute and subacute hepatic failure without coma; K70.11 Alcoholic hepatitis with ascites; E87.6 Hypokalemia; F10.20 Alcohol dependence, uncomplicated; F17.210 Nicotine dependence, cigarettes, uncomplicated; K74.60 Unspecified cirrhosis of liver; K76.6 Portal hypertension; N39.0 Urinary tract infection, site not specified; Z71.41 Alcohol abuse counseling and surveillance of alcoholic
CPT/HCPCS: 36415; 71045; 76700; 76705; 80053; 81001; 81025; 82042; 82150; 82465; 82945; 82948; 83605; 83690; 83735; 84100; 84145; 84157; 85007; 85008; 85025; 85610; 86703; 86705; 86706; 86709; 86803; 87040; 87088; 87340; 89051; 97116; 97161; 99285; A6258; G0378; J0696; J2060; J2405; J2543; J3411; J3490; J7030; J7120; J7512

== ENCOUNTER → 2023-10-31 | Outpatient (CLI) | payer MEDICAID ==
[~2023-10-31] MED LIST changes: +FURO20TA4 PO; +LACT1CAP26 PO; +LORA-269 PO; +MULT-25 PO; -NO HOME MEDS; -POTA-207 PO; +PRED10TA PO; +SPIR50TA PO; +THIA50TA10 PO; +URSO300C2 PO; +iohexol 300mg/ml 100ml inj. ONE
== END | disposition home or self-care (01) ==
LOC: 64 CT 10:26
PROVIDERS: ATTEND Nurse Practitioner Family
DX: K80.20 Calculus of gallbladder without cholecystitis without obstruction (principal); K76.9 Liver disease, unspecified; K44.9 Diaphragmatic hernia without obstruction or gangrene; R16.0 Hepatomegaly, not elsewhere classified
CPT/HCPCS: 74178; J3490; Q9967